=== PATIENT | female | born 1955 ===

== ENCOUNTER 2018-05-18 12:57 | Day surgery (SDC) | payer BC ==
[2018-05-11 09:48] VITALS: BMI 35.3
[2018-05-18 13:32] VITALS: O2SAT 96
--- NOTE | 2018-05-18 14:17 | CP.SDSHP ---
Same Day Surgery H & P - History Proposed Procedure: PRP injection of right peroneus brevis Pre-Op Diagnosis: Peroneus brevis tendonitis - Previous Medical/Surgical History Pain: 6.Severe Pain - Allergies Allergies: Allergies Sulfa (Sulfonamide Antibiotics) Allergy (Verified 07/22/16 10:48) SWELLING - Physical Exam Vital Signs: Vital Signs 05/18/18 05/18/18 13:27 13:31 Temperature 98.4 F Pulse Rate 102 H 102 H Respiratory 18 Rate Blood Pressure 122/77 O2 Sat by Pulse 96 Oximetry Mental Status: Alert & Oriented x3 - {Optional Preform as Required} Integument: WNL Ortho: Other (painful right peroneus brevis) - Date & Time Date: 05/18/18 Time: 14:17 Short Stay Discharge - Short Stay Discharge Admitting Diagnosis/Reason for Visit: M76.71 Disposition: HOME/ ROUTINE Referrals: Mar Powers MD [Primary Care Provider] -
--- NOTE | 2018-05-18 14:23 | CP.PCM.PN ---
Subjective - Date & Time of Evaluation Date of Evaluation: 05/18/18 Time of Evaluation: 14:18 - Subjective Subjective: Podiatry progress note for Dr. Hernandez 62 yo patient presents today for PRP injection of right peroneus brevis. Patient is AAOx3 and NAD today. She states that she has had pain on the outside of her right leg and ankle for 2 months. She states that there was no incident that prompted the pain but that it gradually started to get more painful over time. 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 She also states that she had the same surgery for her left muscle and it helped her greatly. She has a history of type 2 diabetes and has a goiter at her thyroid which she has gotten checked out and it has come back benign. She denies any other pedal complaints today. She denies N/V/F/C/SOB/CP/D and states that she has had nausea after anesthesia in the past. Objective - Vital Signs/Intake and Output Vital Signs (last 24 hours): Temp Pulse Resp BP Pulse Ox 98.4 F 102 H 18 122/77 96 05/18/18 13:31 05/18/18 13:31 05/18/18 13:31 05/18/18 13:31 05/18/18 13:31 - Constitutional Appears: Well, Non-toxic, No Acute Distress - Head Exam Head Exam: ATRAUMATIC, NORMOCEPHALIC - Extremities Exam Additional comments: RLE focused exam: Vasc - DP and PT pulses palpable 2/4 b/l, temp gradient is warm to cool from proximal to distal b/l, cap refill is <3 seconds for all digits Ortho - pain on palpation to the lateral right ankle along the course of the peroneus brevis tendon as well as locally around the outside right ankle, pain on ROM of the right ankle in all directions Derm - skin temp and turgor WNL Neuro - gross and protective sensation WNL - Neurological Exam Neurological Exam: Alert, Awake, Oriented x3 - Psychiatric Exam Psychiatric exam: Normal Affect, Normal Mood Assessment and Plan - Assessment and Plan (Free Text) Assessment: 62 yo patient presents for surgical PRP injection for right peroneus brevis tendonitis Plan: Pt was seen and examined in SDS Pt NPO status was confirmed All pre-op testing and clearance in chart Pt has exhausted all conservative treatment at this time and is opting for surgical intervention Pt was explained procedure and post-operative course All pt's questions were answered to satisfaction No guarantees were made Pt understands all risks, benefits and complications of procedure Pt will follow-up with Dr. Hernandez within 1 week of surgery
[2018-05-18] MEDS ORDERED: Bupivacaine 0.5% Inj(30mL) IJ ONE (14:33)
[2018-05-18] MEDS ORDERED: ceFAZolin 1 GM in Sodium Chloride 0.9% 100 ML IVPB ONE (14:33)
[2018-05-18] MEDS ORDERED: Lidocaine 1% Inj (20ml) IJ ONE (14:33)
[2018-05-18] MEDS ORDERED: Sodium Chloride 0.9% 1,000 ML IV SCH (14:45)
[2018-05-18] MEDS ORDERED: Midazolam 2 MG/2 ML VIAL ONE (16:21)
[2018-05-18] MEDS ORDERED: Lactated Ringer's 1,000 ML IV ONE (16:50)
[2018-05-18] MEDS ORDERED: Propofol 10 mg/ml Inj (20 ML) ONE (17:06)
[2018-05-18] MEDS ORDERED: Lidocaine 1% 5ml Abboject IV ONE (17:14)
[2018-05-18] MEDS ORDERED: Bacitracin Ointment 30 GM TUBE ONE (17:17)
[2018-05-18] MEDS ORDERED: Oxycodone/Acetaminophen 5/325 mg Tab PO PRN (17:53)
--- NOTE | 2018-05-18 17:53 | PCM.SURG1 ---
Surgeon's Initial Post Op Note - Surgeon's Notes Surgeon: Dr. Hernandez Licensed Final Expense Agents: Shayy Mccain PGY1 Type of Anesthesia: IV Sedation, Local (9cc 1% lidocaine plain) Anesthesia Administered By: Dr. Thompson Pre-Operative Diagnosis: Right peroneus brevis tendonitis Operative Findings: See dictation Post-Operative Diagnosis: Same Operation Performed: Right ankle PRP injection Specimen/Specimens Removed: none Estimated Blood Loss: EBL {In ML}: 1 Blood Products Given: N/A Drains Used: No Drains Post-Op Condition: Good Date of Surgery/Procedure: 05/18/18 Time of Surgery/Procedure: 17:53
[2018-05-18] MEDS ORDERED: Lactated Ringer's 1,000 ML IV SCH (18:00)
[2018-05-18 18:57] VITALS: RESP 18
[2018-05-18 19:45] VITALS: BP 132/78; PULSE 88; TEMP 97.9
--- NOTE | 2018-05-21 08:26 | PCM.OP ---
Operative Report - Operative Report Date of Surgery/Procedure: 05/18/18 Time of Surgery/Procedure: 18:00 Surgeon: Dr. Hernandez Data Warehousing Specialist: Shayy Mccain PGY1 Anesthesia/Sedation: IV sedation with local Pre-Operative Diagnosis: Right peroneal tendonitis Post-Operative Diagnosis: Right peroneal tendonitis Indication for Surgery: The patient is a 62 year old female with the above diagnosis. The patient has exhausted all conservative treatment at this time and now requests surgical intervention. The patient signed the consent after careful explanation of risks, benefits, alternatives, and complications to procedure and wishes to proceed. No guarantees were given or implied. Operative Findings: See operation description Procedure/Operation Description: PREPARATION: The patient was brought into the operating room and placed on. operating room table in the supine position. Time-out was performed for identification of the correct patient and procedure. After the induction of IV sedation, the patient received a total of 9 mL of 1% lidocaine plain in a proximal V-block surrounding the peroneal tendons. Once local anesthesia was achieved, the right lower extremity was prepped and draped in normal sterile manner and the procedure began. DESCRIPTION OF PROCEDURE: Attention was directed to the lateral aspect of the patient's left ankle. Apprioximately 4cc of platelet rich plasma was injected into the peroneal tendons and the surrounding soft tissue. A thin layer of bacitracin was applied to the injection sites and covered with a bandage. Estimated Blood Loss: 1cc Complications: None Discharge & Condition: The patient tolerated the anesthesia and procedure well and was escorted to the recovery room with vital signs stable and neurovascular status intact to the right lower extremity. Patient is to remain WBAT in a CAM walker, and will follow up with Dr. Hernandez in office within 1 week.
== END 2018-05-18 20:15 | disposition home or self-care (01) ==
LOC: H.OPSURG 12:57
PROVIDERS: ATTEND Podiatrist Foot & Ankle Surgery
DX: M76.71 Peroneal tendinitis, right leg (principal); E11.9 Type 2 diabetes mellitus without complications; E04.9 Nontoxic goiter, unspecified; Z88.2 Allergy status to sulfonamides
CPT/HCPCS: 0232T; 82948; J0690; J2250; J2704; J3010; J7120

== ENCOUNTER 2018-10-24 12:34 | Emergency (ER) | payer BC ==
[2018-10-24 12:35] VITALS: BMI 35.3
[2018-10-24 12:45] VITALS: TEMP 98.5
[2018-10-24 13:23] VITALS: O2SAT 97
[2018-10-24] MEDS ORDERED: Sodium Chloride 0.9% 1,000 ML IV STA (14:07)
--- NOTE | 2018-10-24 14:11 | ED PDOC ---
HPI: SOB/CHF/COPD Time Seen by Provider: 10/24/18 12:45 Chief Complaint (Nursing): Shortness Of Breath Chief Complaint (Provider): Shortness of Breath History Per: Patient History/Exam Limitations: no limitations Onset/Duration Of Symptoms: Hrs Current Symptoms Are (Timing): Still Present Additional Complaint(s): Esperanza Otto is a 63 year old female with a past medical history of hypertension, hypercholesterolemia, diabetes, and COPD who is presenting to the ED for ev aluation of shortness of breath and palpitations onset at work prior to arrival. Patient states that she feels like her heart is racing and reports feeling agitated. She states that she cant remember if she took her blood pressure medications this morning and denies any change in caffeine intake. Patient denies any nausea, vomiting, chest pain, or fevers. PMD: Mar Powers Past Medical History Reviewed: Historical Data, Nursing Documentation, Vital Signs Vital Signs: Last Vital Signs Temp 98.5 F 10/24/18 12:43 Pulse 110 H 10/24/18 13:22 Resp 19 10/24/18 13:22 BP 143/94 H 10/24/18 13:22 Pulse Ox 97 10/24/18 13:22 - Medical History PMH: Arthritis, Asthma, COPD, HTN, Hypercholesterolemia Denies: Chronic Kidney Disease - Surgical History Surgical History: Cholecystectomy - Family History Family History: States: CAD - Social History Current smoker - smoking cessation education provided: No Alcohol: Social Drugs: Denies - Home Medications Home Medications: Ambulatory Orders Medication Instructions Recorded Azilsartan Medoxomil [Edarbi] 40 mg PO DAILY 05/11/18 RX: metFORMIN [glucOPHAGE] 500 mg PO DAILY 05/11/18 cycloSPORINE [Restasis] 1 / .ROUTE BID 05/18/18 - Allergies Allergies/Adverse Reactions: Allergies Allergy/AdvReac Type Severity Reaction Status Date / Time Sulfa (Sulfonamide Allergy SWELLING Verified 07/22/16 10:48 Antibiotics) Review of Systems ROS Statement: Except As Marked, All Systems Reviewed And Found Negative Constitutional: Negative for: Fever Cardiovascular: Positive for: Palpitations. Negative for: Chest Pain Respiratory: Positive for: Shortness of Breath Gastrointestinal: Negative for: Nausea, Vomiting Physical Exam - Reviewed Nursing Documentation Reviewed: Yes Vital Signs Reviewed: Yes - Physical Exam Appears: Positive for: Well, Non-toxic, No Acute Distress Head Exam: Positive for: ATRAUMATIC, NORMAL INSPECTION, NORMOCEPHALIC Skin: Positive for: Normal Color, Warm, DRY Eye Exam: Positive for: EOMI, Normal appearance, PERRL ENT: Positive for: Normal ENT Inspection Neck: Positive for: Normal, Painless ROM Cardiovascular/Chest: Positive for: Regular Rate, Rhythm. Negative for: Murmur Respiratory: Positive for: Normal Breath Sounds. Negative for: Respiratory Distress Gastrointestinal/Abdominal: Positive for: Normal Exam, Soft. Negative for: Tenderness Back: Positive for: Normal Inspection Extremity: Positive for: Normal ROM. Negative for: Deformity, Swelling Neurologic/Psych: Positive for: Alert, Oriented. Negative for: Motor/Sensory Deficits - Laboratory Results Result Diagrams: 10/24/18 14:22 10/24/18 14:22 - ECG O2 Sat by Pulse Oximetry: 97 (RA) Pulse Ox Interpretation: Normal Medical Decision Making Medical Decision Making: Time: 14:15 Plan: palpitations, asymptomatic at this time, rule out electrolyte abnormality, rule out thyroid dysfunction --CMP --T4 --TSH --Troponin --CBC --IV Fluids ekg and troponin negative. pt feels fine throughout ER stay, no palpitations noted pt thyroid studies normal pt instructed to follow up with pcp/sales representative [employer] for further evaluation. explained nelda tmay need holter monitor as an outpatient. pt agreeable to plan. Scribe Attestation: Documented by, Jen Dexter acting as a scribe for Adam Keller MD. Provider Scribe Attestation: All medical record entries made by the Scribe were at my direction and personally dictated by me. I have reviewed the chart and agree that the record accurately reflects my personal performance of the history, physical exam, medical decision making, and the department course for this patient. I have also personally directed, reviewed, and agree with the discharge instructions and disposition. Disposition - Clinical Impression Clinical Impression: Palpitations - Patient ED Disposition Is Patient to be Admitted: No Counseled Patient/Family Regarding: Studies Performed, Diagnosis, Need For Followup - Disposition Disposition: Routine/Home Disposition Time: 17:30 Condition: IMPROVED Additional Instructions: follow up with your primary doctor in 1-2 days return to the ED with any worsening or concerning symptoms Instructions: Palpitations (DC) Forms: [employer] ([place]), [facility] ED School/Work Excuse
[2018-10-24 15:05] LABS: BASO # 0.1 K/uL (0.0-0.2); BASO % 0.6 % (0.0-2.0); EOS # 0.3 K/uL (0.0-0.7); EOS % 3.2 % (0.0-4.0); HEMOGLOBIN 14.3 g/dL (12.0-16.0); LYMPH # 2.6 K/uL (1.0-4.3); MEAN CELL VOLUME 89.4 fl (81.0-99.0); MEAN CORPUSCULAR HEMOGLOBIN 29.2 pg (27.0-31.0); MEAN CORPUSCULAR HGB CONC 32.7 g/dL (33.0-37.0); MEAN PLATELET VOLUME 8.1 fl (7.2-11.7); MONO # 0.7 K/uL (0.0-0.8); MONO % 8.4 % (0.0-10.0); NEUT % 57.8 % (50.0-75.0); NRBC % 0.6 % (0.0-0.0); RBC 4.89 Mil/uL (3.80-5.20); RED CELL DISTRIBUTION WIDTH 14.2 % (11.5-14.5); WHITE BLOOD COUNT 8.6 K/uL (4.8-10.8)
[2018-10-24 15:12] LABS: ALBUMIN 4.4 g/dL (3.5-5.0); BLOOD UREA NITROGEN 16 mg/dl (7-17); CALCIUM 10.1 mg/dL (8.4-10.2); GFR NON-AFRICAN AMERICAN > 60
[2018-10-24 15:18] LABS: ALT/SGPT 45 U/L (9-52); AST/SGOT 47 U/L (14-36)
[2018-10-24 15:27] LABS: T4 10.1 ug/dl (5.5-11.0)
[2018-10-24 17:38] VITALS: BP 155/86; PULSE 98; RESP 18
--- NOTE | 2018-10-24 18:30 | RAD ---
Date of service: 10/24/2018 HISTORY: Shortness of breath. COMPARISON: 05/11/2018. TECHNIQUE: Chest PA and lateral FINDINGS: LUNGS: No active pulmonary disease. PLEURA: No significant pleural effusion identified. No pneumothorax apparent. CARDIOVASCULAR: No aortic atherosclerotic calcification present. Normal cardiac size. No pulmonary vascular congestion. OSSEOUS STRUCTURES: No significant abnormalities. VISUALIZED UPPER ABDOMEN: Normal. OTHER FINDINGS: Deviation of the trachea to the right likely intrathoracic extension of thyroid. This represents a stable finding. IMPRESSION: No active disease. No significant interval change compared to the prior examination(s).
== END 2018-10-24 17:38 | disposition home or self-care (01) ==
LOC: H.ER 12:34
DX: R00.2 Palpitations (principal); E11.9 Type 2 diabetes mellitus without complications; E78.00 Pure hypercholesterolemia, unspecified; I10 Essential (primary) hypertension; Z79.84 Long term (current) use of oral hypoglycemic drugs
CPT/HCPCS: 71046; 80053; 84436; 84443; 84484; 85025; 96360; 96361; 99284; J7030